=== PATIENT | male | born 1995 | race Caucasian/White ===

== ENCOUNTER 2017-02-18 13:41 | Emergency (ER) | payer BC, OTHER ==
[~2017-02-18] VITALS: Ht 182.9 cm; Wt 83.0 kg
[~2017-02-18 13:41] MED LIST: Z.0.NO CURRENT MEDS
[2017-02-18 13:43] VITALS: BP 134/77; PULSE 71; RESP 14; TEMP 98.2; O2SAT 98
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
[2017-02-18] MEDS ORDERED: IBUP800T23 PO (14:48)
== END 2017-02-18 15:18 | disposition home or self-care (01) ==
LOC: NEPK 13:41
DX: S62.606A Fracture of unspecified phalanx of right little finger, initial encounter for closed fracture (principal); W50.0XXA Accidental hit or strike by another person, initial encounter; Y93.67 Activity, basketball; Y92.9 Unspecified place or not applicable; Y99.9 Unspecified external cause status
CPT/HCPCS: 73140; 99283